=== PATIENT | female | born 1955 | race Caucasian/White ===

== ENCOUNTER 2019-01-06 12:31 | Emergency (ER) | payer MEDICARE, OTHER ==
[2019-01-06] MEDS: DIPHENHYDRAMINE 50 MG INJ IM (13:51)
[2019-01-06] MEDS: METHYLPREDNISOLONE 125 MG INJ IM (13:51)
== END 2019-01-06 14:15 | disposition home or self-care (01) ==
LOC: FTE 12:31
DX: M79.89 Other specified soft tissue disorders (principal)
CPT/HCPCS: 96372; 99284-25